=== PATIENT | female | born 1975 | race Caucasian/White ===

== ENCOUNTER → 2025-01-21 | Outpatient (CLI) | payer BC, SELFPAY ==
--- OUTSIDE RECORDS SUMMARY | 2025-01-21 07:35 | XMS RPT_ITS | CCD ---
Author Organization [facility] [employer] [facility] Care Team Providers Care Stone Layer Name Role Phone Geno Gamboa Attending Tray Valerio Referring Unavailable Tray Javier Primary Care Unavailable Pranav Keating Referring Pranav Mishra Attending [facility] Physician, No Primary Primary Care Unava ilable Problems Problem Classification Problem Date Documented Date Episodic/Chronic Abdominal hernia (2 sources) Diaphragmatic hernia without obstruction or gangrene; Translations: [Diaphragmatic hernia without obstruction or gangrene] Onset: 11-25-2018 Episodic Abdominal pain (2 sources) Unspecified abdominal pain; Translations: [Unspecified abdominal pain] Onset: 11-25-2018 Episodic Diverticulosis and diverticulitis (2 sources) Diverticulosis of large intestine without perforation or abscess without bleeding; Translations: [Dvrtclos of lg int w/o perforation or abscess w/o bleeding] Onset: 11-25-2018 Chronic Other diseases of kidney and ureters (2 sources) Hydronephrosis with renal and ureteral calculous obstruction; Translations: [Hydronephrosis with renal and ureteral calculous obstruction] Onset: 11-25-2018 Episodic Ovarian cyst (2 sources) Unspecified ovarian cyst, left side; Translations: [Unspecified ovarian cyst, left side] Onset: 11-25-2018 Results Test Name Value Interpretation Reference Range Facil ity CT Abdomen/Pelvis w/o Contra ston 11-25-2018 CT Abdomen/Pelvis w/o Contrast Patient Name: ANEESH SANCHEZ CT Exam Date/Time 11/25/2018 12:51:[address] Abdomen/Pelvis (No PO, No IV) Ordering Physician ELOISA GAMBOA, GENO Sherwood Accession Number [id number] CPT4 Codes 81847 (CT Abdomen/Pelvis (No PO, No IV)) Reason For Exam Left Flank Pain Report CT ABDOMEN AND PELVIS WITHOUT CONTRAST Indication: 43-year-old; left flank pain; nausea and dysuria Scan Parameters: Multiple axial 3mm images were obtained of the abdomen and pelvis without IV and without oral contrast. Coronal and sagittal reconstructions were reviewed as well. Comparison: None. FINDINGS: Evaluation of the abdomen and pelvis is limited due to lack of IV and oral contrast. Lung bases: Lung base atelectasis present. Osseous structures: The bone mineralization is normal. There are foci of increased attenuation within the L3 and L4 vertebral bodies which may represent benign bone islands. Liver: The hepatic contour is unremarkable. Biliary tree: No biliary dilatation. The gallbladder is present. Spleen: Normal. Adrenals: Normal. Pancreas: Normal. Kidneys: A punctate calculus is present at the left ureterovesical junction. The left ureter is distended along its course with mild left renal hydronephrosis. Left perinephric stranding and edema is present. There is mild stranding surrounding the course of the left ureter. The right kidney is unremarkable. The bladder is decompressed. Free fluid: None. Lymphadenopathy: None. Aorta: Normal caliber. Bowel: The appendix is present in the right lower quadrant and is normal. The bowel gas pattern is nonspecific and nonobstructive. A few diverticuli are present within the colon. A small hiatal hernia is present. Other: The uterus is present. The bilateral ovaries are visualized. A probable left ovarian 3.2 cm cyst is present in the left adnexa. A small fatty ventral umbilical hernia is present. IMPRESSION: 1. Mild left renal hydronephrosis with mild distention of the left ureter with superimposed inflammatory / infectious changes. A punctate calculus is present at the left ureterovesical junction. 2. Left probable. 3.2 cm cyst. Further characterization with ultrasound can be performed when feasible. 3. Colonic diverticulosis. 4. Small hiatal hernia. Report Dictated on Final Dictating Physician: MD GUEVARA JENNIFER R Signed Date and Time: 11/25/2018 1:13 pm Signed by: MD GUEVARA JENNIFER R Transcribed Date and Time: 11/25/2018 1:14 Normal [facility] Comp Metabolic Panelon 11-25 ALP enzyme act/vol 116 U/L Normal 38-126 [facility] Comment on above: Performed By: #### C MP3, HEMDF #### [facility] [address] [place] [address] ALT enzyme act/vol 48 U/L Normal 13-69 [facility] Comment on above: Performed By: #### C MP3, HEMDF #### [facility] [address] [place] [address] AST enzyme act/vol 26 U/L Normal 15-46 [facility] Comment on above: Performed By: #### C MP3, HEMDF #### [facility] [address] [place] [address] Calcium mass conc 10.0 mg/dL Normal 8.4-10.4 [facility] Comment on above: Performed By: #### C MP3, HEMDF #### [facility] [address] [place] [address] Glucose mass conc 127 mg/dL High 70-100 [facility] Comment on above: Performed By: #### C MP3, HEMDF #### [facility] [address] [place] [address] Protein mass conc 6.9 g/dL Normal 6.3-8.2 [facility] Comment on above: Performed By: #### C MP3, HEMDF #### [facility] [address] [place] [address] Urea nitrogen mass conc 17 mg/dL Normal 7-20 [facility] Comment on above: Performed By: #### C MP3, HEMDF #### [facility] [address] [place] [address] Anion gap molar conc 8 Normal [facility] Comment on above: Performed By: #### C MP3, HEMDF #### [facility] [address] [place] [address] Bilirubin mass conc 0.4 mg/dL Normal 0.2-1.3 [facility] Comment on above: Performed By: #### C MP3, HEMDF #### [facility] [address] [place] [address] CO2 molar conc 30 mmol/L Normal 22-30 [facility] Comment on above: Performed By: #### C MP3, HEMDF #### [facility] [address] [place] [address] Creatinine mass conc 0.91 mg/dL Normal 0.52-1.25 [facility] Comment on above: Performed By: #### C MP3, HEMDF #### [facility] [address] [place] [address] GFR/1.73 sq M predicted among blacks MDRD vol rate/area (S/P/Bld) mL/min/{1.73_m2} Normal >60 [facility] Comment on above: Performed By: #### C MP3, HEMDF #### [facility] [address] [place] [address] GFR/1.73 sq M predicted among non-blacks MDRD vol rate/area (S/P/Bld) mL/min/{1.73_m2} Normal >60 [facility] Comment on above: Result Comment: Sour ce- MDRD equation with creatinine calibration to IDMS(NKDEP) eGFR not recommended for drug dose adjustment Performed By: #### C MP3, HEMDF #### [facility] [address] [place] [address] Albumin mass conc 4.3 g/dL Normal 3.5-5.0 [facility] Comment on above: Performed By: #### C MP3, HEMDF #### [facility] [address] [place] [address] Chloride molar conc 102 mmol/L Normal 98-107 [facility] Comment on above: Performed By: #### C MP3, HEMDF #### [facility] [address] [place] [address] Potassium molar conc 4.2 mmol/L Normal 3.5-5.1 [facility] Comment on above: Performed By: #### C MP3, HEMDF #### [facility] [address] [place] [address] Sodium molar conc 140 mmol/L Normal 135-145 [facility] Comment on above: Performed By: #### C MP3, HEMDF #### [facility] [address] [place] [address] HCG,Urine Qualon 11-25-2018 HCG.beta subunit ( test) Ql (U) Negative Normal Negative [facility] Comment on above: Result Comment: Preg carol is the most common reason for HCG in urine, although choriocarcinoma, hydatidiform mole, and certain nontropho- blastic malignancies also result in detectable urinary HCG levels. Sensitivity = 20mIU/mL. Performed By: #### U AMAC, HCGUR, UAMIC #### [facility] [address] [place] [address] Hemogram w/ Autodiffon 11-25 Abs Baso Cnt 0.1 10*3/uL Normal 0.0-0.2 [facility] Comment on above: Performed By: #### C MP3, HEMDF #### [facility] [address] [place] [address] Abs Neutrophile Cnt 10.3 10*3/uL High 1.8-7.0 [facility] Comment on above: Performed By: #### C MP3, HEMDF #### [facility] [address] [place] [address] Basophils/100 WBC (Bld) 0.4 % Normal 0.0-2.0 [facility] Comment on above: Performed By: #### C MP3, HEMDF #### [facility] [address] [place] [address] Eosinophils #/vol (Bld) 0.1 10*3/uL Normal 0.0-0.5 [facility] Comment on above: Performed By: #### C MP3, HEMDF #### [facility] [address] [place] [address] Eosinophils/100 WBC (Bld) 0.7 % Low 1.0-6.0 [facility] Comment on above: Performed By: #### C MP3, HEMDF #### [facility] [address] [place] [address] Erythrocyte distribution width Ratio (RBC) 14.1 % Normal 11.5-14.5 [facility] Comment on above: Performed By: #### C MP3, HEMDF #### [facility] [address] [place] [address] Granulocytes/100 WBC (Bld) 85.7 % High 40.0-80.0 [facility] Comment on above: Performed By: #### C MP3, HEMDF #### [facility] [address] [place] [address] Hematocrit Volume Fraction (Bld) 39.3 % Normal 35.0-47.0 [facility] Comment on above: Performed By: #### C MP3, HEMDF #### [facility] [address] [place] [address] Hemoglobin mass conc (Bld) 13.1 g/dL Normal 11.7-16.0 [facility] Comment on above: Performed By: #### C MP3, HEMDF #### [facility] [address] [place] [address] Lymphocytes #/vol (Bld) 1.1 10*3/uL Normal 1.0-4.3 [facility] Comment on above: Performed By: #### C MP3, HEMDF #### [facility] [address] [place] [address] Lymphocytes/100 WBC (Bld) 8.9 % Low 20.0-40.0 [facility] Comment on above: Performed By: #### C MP3, HEMDF #### [facility] [address] [place] [address] MCH Entitic mass (RBC) 27.5 pg Normal 26.0-34.0 [facility] Comment on above: Performed By: #### C MP3, HEMDF #### [facility] [address] [place] [address] MCHC mass conc (RBC) 33.4 % Normal 32.0-36.0 [facility] Comment on above: Performed By: #### C MP3, HEMDF #### [facility] [address] [place] [address] MCV Entitic volume (RBC) 82.4 fL Normal 79.0-98.0 [facility] Comment on above: Performed By: #### C MP3, HEMDF #### [facility] [address] [place] [address] Monocytes #/vol (Bld) 0.5 10*3/uL Normal 0.0-0.8 [facility] [employer] Comment on above: Performed By: #### C MP3, HEMDF #### [facility] [address] [place] [address] Monocytes/100 WBC (Bld) 4.3 % Normal 2.0-10.0 [facility] [employer] Comment on above: Performed By: #### C MP3, HEMDF #### [facility] [address] [place] [address] Platelet mean volume Entitic volume (Bld) 8.5 fL Normal 7.4-10.4 [facility] [employer] Comment on above: Performed By: #### C MP3, HEMDF #### [facility] [address] [place] [address] Platelets #/vol (Bld) 281 10*3/uL Normal 140-440 [facility] [employer] Comment on above: Performed By: #### C MP3, HEMDF #### [facility] [address] [place] [address] RBC #/vol (Bld) 4.77 10*6/uL Normal 3.80-5.20 [facility] Comment on above: Performed By: #### C MP3, HEMDF #### [facility] [address] [place] [address] WBC #/vol (Bld) 12.1 10*3/uL High 3.6-10.7 [facility] Comment on above: Performed By: #### C MP3, HEMDF #### [facility] [address] [place] [address] Urinalysis,Macroon 9 Appearance Nom (U) CLEAR Normal Clear [facility] Comment on above: Performed By: #### U AMAC, HCGUR, UAMIC #### [facility] [address] [place] [address] Bilirubin,Ur Negative Normal Negative [facility] [employer] Comment on above: Performed By: #### U AMAC, HCGUR, UAMIC #### [facility] [address] [place] [address] Color Nom (U) YELLOW Normal Lt. Yellow [facility] Comment on above: Performed By: #### U AMAC, HCGUR, UAMIC #### [facility] [address] [place] [address] Glucose Ql (U) Negative Normal Negative [facility] Comment on above: Performed By: #### U AMAC, HCGUR, UAMIC #### [facility] [address] [place] [address] Ketone,Urine Negative Normal Negative [facility] Comment on above: Performed By: #### U AMAC, HCGUR, UAMIC #### [facility] [address] [place] [address] Nitrite Ql (U) Negative Normal Negative [facility] Comment on above: Performed By: #### U AMAC, HCGUR, UAMIC #### [facility] [address] [place] [address] Occult Blood,Ur 3 + {RBC}/uL Normal Negative [facility] Comment on above: Performed By: #### U AMAC, HCGUR, UAMIC #### [facility] [address] [place] [address] pH (U) 5.5 Normal 5.0-8.0 [facility] Comment on above: Performed By: #### U AMAC, HCGUR, UAMIC #### [facility] [address] [place] [address] Protein mass conc (U) Negative Normal Negative [facility] Comment on above: Performed By: #### U AMAC, HCGUR, UAMIC #### [facility] [address] [place] [address] Specific [place],Urine 1.022 Normal 1.005-1.030 [facility] Comment on above: Performed By: #### U AMAC, HCGUR, UAMIC #### [facility] [address] [place] [address] Urobilinogen Qn (U) 0.2 mg/dL Normal 0-1 [facility] Comment on above: Performed By: #### U AMAC, HCGUR, UAMIC #### [facility] [address] [place] [address] WBC #/vol (Bld) Negative Normal Negative [facility] Comment on above: Performed By: #### U AMAC, HCGUR, UAMIC #### [facility] [address] [place] [address] Urinalysis,Microscopicon Bacteria LM.HPF #/area (Urine sed) Negative Normal Negative [facility] Comment on above: Performed By: #### U AMAC, HCGUR, UAMIC #### [facility] [address] [place] [address] Cast, Hyaline 3 /[LPF] Normal 0-1 [facility] Comment on above: Performed By: #### U AMAC, HCGUR, UAMIC #### [facility] [address] [place] [address] Epithelial cells LM.HPF #/area (Urine sed) TRACE Normal 3-5 [facility] Comment on above: Performed By: #### U AMAC, HCGUR, UAMIC #### [facility] [address] [place] [address] RBC,Urine 86 /[HPF] Normal 0-2 [facility] Comment on above: Performed By: #### U AMAC, HCGUR, UAMIC #### [facility] [address] [place] [address] WBC,Urine 3 /[HPF] Normal 0-5 [facility] Comment on above: Performed By: #### U AMAC, HCGUR, UAMIC #### [facility] [address] [place] [address] Encounters Encounter Date Encounter Type Care Provider Facility Start: 01-21-2025 ambulatory [facility] Fa cility:[facility] Start: 01-15-2025 Encounter for other preprocedural examination [facility] Start: 11-25-2018 Emergency department patient visit Geno Gamboa [facility] Payers Date Payer Category Payer Self-pay 2024 Unknown [id number] 1975 Unknown [id number] Private Health Insurance Unknown [id number] Summary Purpose Family History No Family History Records FoundNo Family History Records Found Advance Directives No Advanced Directives Records FoundNo Advanced Directives Records Found Additional Source Comments INFORMATION SOURCE (unrecogn ized section and content) DATE CREATED AUTHOR 12/03/2018 [facility] [place] DATE CREATED AUTHOR AUTHOR'S ORGANIZ ATION 01/18/2025 [facility] FOR RECORDS PERTAINING TO PATIENTS WHO ARE OR HAVE BEEN ENROLLED IN A CHEMICAL DEPENDENCY/SUBSTANCEABUSE PROGRAM, SOME INFORMATION MAY BE OMITTED. This clinical summary was aggregated from multiple sources. Caution should be exercised in using it in the provision of clinical care. This summary normalizes information from multiple sources, and as a consequence, information in this document may materially change the coding, format and clinical context of patient data. In addition, data may be omitted in some cases. CLINICAL DECISIONS SHOULD BE BASED ON THE PRIMARY CLINICAL RECORDS. [email or web address] [facility]. provides no warranty or guarantee of the accuracy or completeness of information in this document.
[2025-01-21 07:57] LABS: Hematocrit 38.7 % (37-47); Hemoglobin 12.6 g/dL (12.0-15.0); Mean Corp Hgb Conc 32.6 g/dL (32-36); Mean Corpuscular Hgb 26.7 pg (27.0-32.0); Mean Platelet Vol. 10.9 fl (6.2-12.0); Platelet Count 238 K/mm3 (150-450); RBC Distribution Width CV 14.4 % (11.6-14.6); RBC Distribution Width SD 43.3 fl (35.1-43.9); Red Blood Count 4.72 M/mm3 (4.2-5.4)
[2025-01-21 09:06] LABS: Anion Gap 9 (5-15); BUN 15 mg/dL (4-19); Carbon Dioxide 22.5 mmol/L (21.0-32.0); Chloride 108 mmol/L (98-108); Creatinine, Serum 0.73 mg/dL (0.70-1.20); EST Glomerular Filtration Rate 98 (>60); Glucose 101 mg/dL (70-99); Potassium 3.8 mmol/L (3.3-5.1); Sodium Level 140 mmol/L (133-145)
== END | disposition home or self-care (01) ==
PROVIDERS: Referring Provider Otolaryngology; Visit Provider Otolaryngology
DX: Z01.812 Encounter for preprocedural laboratory examination (principal); Z01.810 Encounter for preprocedural cardiovascular examination
CPT/HCPCS: 36415; 80048; 85027; 93005

== ENCOUNTER → 2025-02-05 | Outpatient (CLI) | payer BC, SELFPAY ==
--- NOTE | 2025-02-04 12:30 | MASS_PTH ---
PATIENT: ANEESH SANCHEZ LOC: [facility] U#:[id number] AGE/SX: 50/F ROOM: RE02/05/[address]: Dr. Pranav Keating MD : [id number] BED: DIS: 02/05/2025 SPEC #: [id number] RECD: 02/05/25 14:54 STATUS: LEEANN REHoma #: [id number] KEITH: 02/04/25 12:[address]: Pranav Keating DEPT: SURGICAL PATHOLOGY RECD BY: Pako Parker ENTERED: 02/06/25 08:10 SP TYPE: Mass OTHR DR: No Primary Care Phys Tissues: A - Neck, NOS Procedures: Surgery Specimen Level III HEADER OPERATION: Excision neck mass PRE-OP DIAGNOSIS: Localized swelling, mass and lump, neck TISSUE SUBMITTED: A- Neck mass MICROSCOPIC DIAGNOSIS A. Neck, mass, excision: * Epidermal inclusion cyst. MICROSCOPIC DESCRIPTION Slides are reviewed. GROSS DESCRIPTION A.? Received in formalin labeled with the patient's name and date of . Designated as neck mass is a 2.4 x 2.3 x 1.7 cm mckeon-white, intact cystic structure.? Sectioning reveals mckeon-white grumous contents and a fibrotic cyst wall.? Ssis Developer sections are submitted in 1 cassette. CO 02/06/2025 CPT:40720
--- OUTSIDE RECORDS SUMMARY | 2025-02-05 22:26 | XMS RPT_ITS | CCD ---
Author Organization [facility] ion [facility] Care Team Providers Care Ship Pilot Name Role Phone Geno Gamboa Attending Unavailable Tray Javier Referring Unavailable Tray Javier Primary Care Unavailable Rishabh MELÉNDEZ, Dr. Rock Attending Provider Dr. Pranav Keating MD Referring Provider Care Physician, No Primary Primary Care Provider Unavailable Liban Arevalo Attending Unavailable Care Physician, No Primary Primary Care Unava ilPranav Galvez Referring Unavailabl e Care Physician, No Primary Primary Care Unava ilPranav Galvez Referring Unavailabl e Pranav Keating Attending Unavailabl e Problems Problem Classification Problem Date Documented Date [...] Results Test Name Value Interpretation Reference Range Facility Anion gap in Serum or Plasma Ordered By: Pranav Keating on 01-21-2025 Anion gap [Moles/Vol] 9 mmol/L 5-15 [facility] BUN/creatinine ratioOrdered By: Prnaav Keating on 01-21-2025 Urea nitrogen/Creatinine [Mass ratio] 21.0 mg/mg High 10-20 [facility] Basic Metabolic Profile (BMP )on 01-21-2025 BUN/CRE 21.0 RATIO High -20 [facility] Comment on above: Performed By: #### L 100.0500, L500.2500 #### [facility] [address] [place], [address] Calcium [Mass/Vol] 10.0 mg/dL Normal 7.6-11.0 [facility] Comment on above: Performed By: #### L 100.0500, L500.2500 #### [facility] [address] [place], [address] Chloride [Moles/Vol] 108 mmol/L Normal 98-108 [facility] Comment on above: Performed By: #### L 100.0500, L500.2500 #### [facility] [address] [place], [address] CO2 [Moles/Vol] 22.5 mmol/L Normal 21.0-32.0 [facility] Comment on above: Performed By: #### L 100.0500, L500.2500 #### [facility] [address] [place], [address] Creatinine [Mass/Vol] 0.73 mg/dL Normal 0.70-1.20 [facility] Comment on above: Performed By: #### L 100.0500, L500.2500 #### [facility] [address] [place], [address] GAP 9 Normal 5-15 [facility] Comment on above: Performed By: #### L 100.0500, L500.2500 #### [facility] [address] [place], [address] GFR/1.73 sq M.predicted among non-blacks MDRD (S/P/Bld) [Vol rate/Area] 98 mL/min/{1.73_m2} Normal >60 [facility] Comment on above: Result Comment: mL/m in/1.73m2 CKD-EPI Creatinine Equation (2020) Performed By: #### L 100.0500, L500.2500 #### [facility] [address] [place], [address] Glucose [Mass/Vol] 101 mg/dL High 70-99 [facility] Comment on above: Performed By: #### L 100.0500, L500.2500 #### [facility] [address] [place], [address] Potassium [Moles/Vol] 3.8 mmol/L Normal 3.3-5.1 [facility] Comment on above: Performed By: #### L 100.0500, L500.2500 #### [facility] [address] [place], [address] Sodium [Moles/Vol] 140 mmol/L Normal 133-145 [facility] Comment on above: Performed By: #### L 100.0500, L500.2500 #### [facility] [address] [place], [address] Urea nitrogen [Mass/Vol] 15 mg/dL Normal 4-19 [facility] Comment on above: Performed By: #### L 100.0500, L500.2500 #### [facility] [address] [place], [address] CBC-Complete Blood Cnt No Di ffon 01-21-2025 Erythrocyte distribution width (RBC) [Ratio] 14.4 % Normal 11.6-14.6 [facility] Comment on above: Performed By: #### L 100.0500, L500.2500 #### [facility] [address] [place], [address] Hematocrit (Bld) [Volume fraction] 38.7 % Normal 37-47 [facility] Comment on above: Performed By: #### L 100.0500, L500.2500 #### [facility] [address] [place], [id number] Hemoglobin (Bld) [Mass/Vol] 12.6 g/dL Normal 12.0-15.0 [facility] Comment on above: Performed By: #### L 100.0500, L500.2500 #### [facility] [address] [place], [id number] MCH (RBC) [Entitic mass] 26.7 pg Low 27.0-32.0 [facility] Comment on above: Performed By: #### L 100.0500, L500.2500 #### [facility] [address] [place], [address] MCHC (RBC) [Mass/Vol] 32.6 g/dL Normal 32-36 [facility] Comment on above: Performed By: #### L 100.0500, L500.2500 #### [facility] [address] [place], [id number] MCV (RBC) [Entitic vol] 82.0 fL Normal 81-99 [facility] Comment on above: Performed By: #### L 100.0500, L500.2500 #### [facility] [address] [place], [id number] Platelet mean volume (Bld) [Entitic vol] 10.9 fL Normal 6.2-12.0 [facility] Comment on above: Performed By: #### L 100.0500, L500.2500 #### [facility] [address] [place], [id number] Platelets (Bld) [#/Vol] 238 10*3/uL Normal 150-450 [facility] Comment on above: Performed By: #### L 100.0500, L500.2500 #### [facility] [address] [place], [address] RBC (Bld) [#/Vol] 4.72 10*6/uL Normal 4.2-5.4 [facility] Comment on above: Performed By: #### L 100.0500, L500.2500 #### [facility] [address] [place], [address] RDW SD 43.3 fl Normal 35.1-43.9 [facility] Comment on above: Performed By: #### L 100.0500, L500.2500 #### [facility] [address] [place], [address] WBC (Bld) [#/Vol] 6.0 10*3/uL Normal 4.4-11.0 [facility] Comment on above: Performed By: #### L 100.0500, L500.2500 #### [facility] [address] [place], [address] Carbon dioxide, total [Moles /volume] in Central venous bloodOrdered By: Pranav Keating on 01-21-2025 CO2 [Moles/Vol] 22.5 mmol/L 21.0-32.0 [facility] Chloride assayOrdered By: Gisel Keating on 01-21-2025 Chloride [Moles/Vol] 108 mmol/L 98-108 [facility] Erythrocyte distribution wid th ratioOrdered By: Pranav Keating on 01-21-2025 Erythrocyte distribution width (RBC) [Ratio] 14.4 % 11.6-14.6 [facility] Erythrocyte distribution wid th standard deviationOrdered By: Pranav Keating on 01-21-2025 Erythrocyte distribution width (RBC) [Ratio] 43.3 fl 35.1-43.9 [facility] Glomerular filtration rate ( GFR) estimation/1.73 sq m using serum, plasma, or whole bOrdered By: Pranav Keating on 01-21-2025 GFR/1.73 sq M.predicted among non-blacks MDRD (S/P/Bld) [Vol rate/Area] 98 mL/min/{1.73_m2} >60 [facility] Comment on above: mL/min/1.73m2 CKD-EP I Creatinine Equation (2020) Hematocrit Auto (Bld) [Volum e fraction]Ordered By: Pranav Keating on 01-21-2025 Hematocrit (Bld) [Volume fraction] 38.7 % 37-47 [facility] Hemoglobin measurementOrdere d By: Pranav Keating on 01-21-2025 Hemoglobin (Bld) [Mass/Vol] 12.6 g/dL 12.0-15.0 [facility] MCV (mean corpuscular volume ) determinationOrdered By: Pranav Keating on 01-21-2025 MCV (RBC) [Entitic vol] 82.0 fL 81-99 [facility] Mean corpuscular hemoglobin (MCH) determinationOrdered By: Pranav Keating on 01-21-2025 MCH (RBC) [Entitic mass] 26.7 pg Low 27.0-32.0 [facility] Mean corpuscular hemoglobin concentration (MCHC) determinationOrdered By: Pranav Keating on 01-21-2025 MCHC (RBC) [Mass/Vol] 32.6 g/dL 32-36 [facility] Mean platelet volume determi nationOrdered By: Pranav Keating on 01-21-2025 Platelet mean volume (Bld) [Entitic vol] 10.9 fL 6.2-12.0 [facility] Platelet countOrdered By: Gisel Keating on 01-21-2025 Platelets (Bld) [#/Vol] 238 10*3/uL 150-450 [facility] Potassium measurement (mass/ volume)Ordered By: Pranav Keating on 01-21-2025 Potassium (Unsp spec) [Mass/Vol] 3.8 mmol/L 3.3-5.1 [facility] RBC Auto (Bld) [#/Vol]Ordere d By: Pranav Keating on 01-21-2025 RBC (Bld) [#/Vol] 4.72 10*6/uL 4.2-5.4 [facility] Serum creatinine measurement (mass/volume)Ordered By: Pranav Keating on 01-21-2025 Creatinine [Mass/Vol] 0.73 mg/dL 0.70-1.20 [facility] Serum glucose measurement (m ass/volume)Ordered By: Pranav Keating on 01-21-2025 Glucose [Mass/Vol] 101 mg/dL High 70-99 [facility] Serum or plasma calcium agusto urement (mass/volume)Ordered By: Pranav Keating on 01-21-2025 Calcium [Mass/Vol] 10.0 mg/dL 7.6-11.0 [facility] Serum or plasma urea nitroge n measurement (mass/volume)Ordered By: Pranav Keating on 01-21-2025 Urea nitrogen [Mass/Vol] 15 mg/dL 4-19 [facility] Sodium levelOrdered By: Isra Keating on 01-21-2025 Sodium [Moles/Vol] 140 mmol/L 133-145 [facility] White blood cell (WBC) count Ordered By: Pranav Keating on 01-21-2025 WBC (Bld) [#/Vol] 6.0 10*3/uL 4.4-11.[address] [facility] CT Abdomen/Pelvis w/o Contra ston 11-25-2018 CT Abdomen/Pelvis w/o Contrast Patient Name: ANEESH SANCHEZ CT Exam Date/Time 11/25/2018 12:51:[address] Abdomen/Pelvis (No PO, No IV) Ordering Physician ELOISA GAMBOA AMY L Accession Number [id number] CPT4 Codes 58702 (CT Abdomen/Pelvis (No PO, No IV)) Reason [...] Transcribed Date and Time: 11/25/2018 1:14 Normal [facility] Comp Metabolic Panelon 11-25 ALP enzyme act/vol 116 U/L Normal 38-126 [facility] Comment on above: Performed By: #### C MP3, HEMDF #### [facility] [address] [place] [address] ALT enzyme act/vol 48 U/L Normal 13-69 [facility] Comment on above: Performed By: #### C MP3, HEMDF #### [facility] [address] [place] [address] AST enzyme act/vol 26 U/L Normal 15-46 [facility] Comment on above: Performed By: #### C MP3, HEMDF #### [facility] [address] [place] [address] Calcium mass conc 10.0 mg/dL Normal 8.4-10.4 [facility] Comment on above: Performed By: #### C MP3, HEMDF #### [facility] [address] [place] [address] Glucose mass conc 127 mg/dL High 70-100 [facility] Comment on above: Performed By: #### C MP3, HEMDF #### [facility] [address] [place] [address] Protein mass conc 6.9 g/dL Normal 6.3-8.2 [facility] Comment on above: Performed By: #### C MP3, HEMDF #### [facility] [address] [place] [address] Urea nitrogen mass conc 17 mg/dL Normal 7-20 [facility] Comment on above: Performed By: #### C MP3, HEMDF #### [facility] [address] [place] [address] Anion gap molar conc 8 Normal [facility] Comment on above: Performed By: #### C MP3, HEMDF #### [facility] [address] [place] [address] Bilirubin mass conc 0.4 mg/dL Normal 0.2-1.3 [facility] Comment on above: Performed By: #### C MP3, HEMDF #### [facility] [address] [place] [address] CO2 molar conc 30 mmol/L Normal 22-30 [facility] Comment on above: Performed By: #### C MP3, HEMDF #### [facility] [address] [place] [address] Creatinine mass conc 0.91 mg/dL Normal 0.52-1.25 [facility] Comment on above: Performed By: #### C MP3, HEMDF #### [facility] [address] [place] [address] GFR/1.73 sq M predicted among blacks MDRD vol rate/area (S/P/Bld) mL/min/{1.73_m2} Normal >[facility] Comment on above: Performed By: #### C MP3, HEMDF #### [facility] [address] [place] [address] GFR/1.73 sq M predicted among non-blacks MDRD vol rate/area (S/P/Bld) mL/min/{1.73_m2} Normal >60 [facility] Comment on above: Result Comment: Sour ce- MDRD equation with creatinine calibration to IDMS(NKDEP) eGFR not recommended for drug dose adjustment Performed By: #### C MP3, HEMDF #### [facility] [address] [place] [address] Albumin mass conc 4.3 g/dL Normal 3.5-5.0 [facility] Comment on above: Performed By: #### C MP3, HEMDF #### [facility] [address] [place] [address] Chloride molar conc 102 mmol/L Normal 98-107 [facility] Comment on above: Performed By: #### C MP3, HEMDF #### [facility] [address] [place] [address] Potassium molar conc 4.2 mmol/L Normal 3.5-5.1 [facility] Comment on above: Performed By: #### C MP3, HEMDF #### [facility] [address] [place] [address] Sodium molar conc 140 mmol/L Normal 135-145 [facility] Comment on above: Performed By: #### C MP3, HEMDF #### [facility] [address] [place] [address] HCG,Urine Qualon 11-25-2018 HCG.beta subunit ( test) Ql (U) Negative Normal Negative [facility] Comment on above: Result Comment: Preg carol is the most common reason for HCG in urine, although choriocarcinoma, hydatidiform mole, and certain nontropho- blastic malignancies also result in detectable urinary HCG levels. Sensitivity = 20mIU/mL. Performed By: #### U AMAC, HCGUR, UAMIC #### [facility] [address] [place] [address] Hemogram w/ Autodiffon 11-25 Abs Baso Cnt 0.1 10*3/uL Normal 0.0-0.2 [facility] Comment on above: Performed By: #### C MP3, HEMDF #### [facility] [address] [place] [address] Abs Neutrophile Cnt 10.3 10*3/uL High 1.8-7.0 [facility] Comment on above: Performed By: #### C MP3, HEMDF #### [facility] [address] [place] [address] Basophils/100 WBC (Bld) 0.4 % Normal 0.0-2.0 [facility] Comment on above: Performed By: #### C MP3, HEMDF #### [facility] [address] [place] [address] Eosinophils #/vol (Bld) 0.1 10*3/uL Normal 0.0-0.5 [facility] Comment on above: Performed By: #### C MP3, HEMDF #### [place] [address] [place] [address] Eosinophils/100 WBC (Bld) 0.7 % Low 1.0-6.0 [facility] Comment on above: Performed By: #### C MP3, HEMDF #### [facility] [address] [place] [address] Erythrocyte distribution width Ratio (RBC) 14.1 % Normal 11.5-14.5 [facility] Comment on above: Performed By: #### C MP3, HEMDF #### [place] [address] [place] [address] Granulocytes/100 WBC (Bld) 85.7 % High 40.0-80.0 [facility] Comment on above: Performed By: #### C MP3, HEMDF #### [place] [address] [place] [address] Hematocrit Volume Fraction (Bld) 39.3 % Normal 35.0-47.0 [facility] Comment on above: Performed By: #### C MP3, HEMDF #### [facility] [address] [place] [address] Hemoglobin mass conc (Bld) 13.1 g/dL Normal 11.7-16.0 [facility] Comment on above: Performed By: #### C MP3, HEMDF #### [facility] [address] [place] [address] Lymphocytes #/vol (Bld) 1.1 10*3/uL Normal 1.0-4.3 [facility] Comment on above: Performed By: #### C MP3, HEMDF #### [facility] [address] [place] [address] Lymphocytes/100 WBC (Bld) 8.9 % Low 20.0-40.0 [facility] Comment on above: Performed By: #### C MP3, HEMDF #### [facility] [address] [place] [address] MCH Entitic mass (RBC) 27.5 pg Normal 26.0-34.0 [facility] Comment on above: Performed By: #### C MP3, HEMDF #### [facility] [address] [place] [address] MCHC mass conc (RBC) 33.4 % Normal 32.0-36.0 [facility] Comment on above: Performed By: #### C MP3, HEMDF #### [facility] [address] [place] [address] MCV Entitic volume (RBC) 82.4 fL Normal 79.0-98.0 [facility] Comment on above: Performed By: #### C MP3, HEMDF #### [facility] [address] [place] [address] Monocytes #/vol (Bld) 0.5 10*3/uL Normal 0.0-0.8 [facility] Comment on above: Performed By: #### C MP3, HEMDF #### [facility] [address] [place] [address] Monocytes/100 WBC (Bld) 4.3 % Normal 2.0-10.0 [facility] Comment on above: Performed By: #### C MP3, HEMDF #### [facility] [address] [place] [address] Platelet mean volume Entitic volume (Bld) 8.5 fL Normal 7.4-10.4 [facility] Comment on above: Performed By: #### C MP3, HEMDF #### [facility] [address] [place] [address] Platelets #/vol (Bld) 281 10*3/uL Normal 140-440 [facility] Comment on above: Performed By: #### C MP3, HEMDF #### [place] [address] [place] [address] RBC #/vol (Bld) 4.77 10*6/uL Normal 3.80-5.20 [facility] Comment on above: Performed By: #### C MP3, HEMDF #### [facility] [address] [place] [address] WBC #/vol (Bld) 12.1 10*3/uL High 3.6-10.7 [facility] Comment on above: Performed By: #### C MP3, HEMDF #### [facility] [address] [place] [address] Urinalysis,Macroon 9 Appearance Nom (U) CLEAR Normal Clear [facility] Comment on above: Performed By: #### U AMAC, HCGUR, UAMIC #### [facility] [address] [place] [address] Bilirubin,Ur Negative Normal Negative [facility] Comment on above: Performed By: #### U AMAC, HCGUR, UAMIC #### [facility] [address] [place] [address] Color Nom (U) YELLOW Normal Lt. Yellow [facility] Comment on above: Performed By: #### U AMAC, HCGUR, UAMIC #### [place] [address] [place] [address] Glucose Ql (U) Negative Normal Negative [facility] Comment on above: Performed By: #### U AMAC, HCGUR, UAMIC #### [facility] [address] [place] [address] Ketone,Urine Negative Normal Negative [facility] Comment on above: Performed By: #### U AMAC, HCGUR, UAMIC #### [facility] [address] [place] [address] Nitrite Ql (U) Negative Normal Negative [facility] Comment on above: Performed By: #### U AMAC, HCGUR, UAMIC #### [facility] [address] [place] [address] Occult Blood,Ur 3 + {RBC}/uL Normal Negative [facility] Comment on above: Performed By: #### U AMAC, HCGUR, UAMIC #### [facility] [address] [place] [address] pH (U) 5.5 Normal 5.0-8.0 [facility] Comment on above: Performed By: #### U AMAC, HCGUR, UAMIC #### [facility] [address] [place] [address] Protein mass conc (U) Negative Normal Negative [facility] Comment on above: Performed By: #### U AMAC, HCGUR, UAMIC #### [facility] [address] [place] [address] Specific [place],Urine 1.022 Normal 1.005-1.030 [facility] Comment on above: Performed By: #### U AMAC, HCGUR, UAMIC #### [facility] [address] [place] [address] Urobilinogen Qn (U) 0.2 mg/dL Normal 0-1 [facility] Comment on above: Performed By: #### U AMAC, HCGUR, UAMIC #### [facility] [address] [place] [address] WBC #/vol (Bld) Negative Normal Negative [facility] Comment on above: Performed By: #### U AMAC, HCGUR, UAMIC #### [facility] [address] [place] [address] Urinalysis,Microscopicon Bacteria LM.HPF #/area (Urine sed) Negative Normal Negative [facility] Comment on above: Performed By: #### U AMAC, HCGUR, UAMIC #### [facility] [address] [place] [address] Cast, Hyaline 3 /[LPF] Normal 0-1 [facility] Comment on above: Performed By: #### U AMAC, HCGUR, UAMIC #### [facility] [address] [place] [address] Epithelial cells LM.HPF #/area (Urine sed) TRACE Normal 3-5 [facility] Comment on above: Performed By: #### U AMAC, HCGUR, UAMIC #### [facility] [address] [place] [address] RBC,Urine 86 /[HPF] Normal 0-2 [facility] Comment on above: Performed By: #### U AMAC, HCGUR, UAMIC #### [facility] [address] [place] [address] WBC,Urine 3 /[HPF] Normal 0-5 [facility] Comment on above: Performed By: #### U AMAC, HCGUR, UAMIC #### [facility] [address] [place] [address] Encounters Encounter Date Encounter Type Care Provider Facility Start: 01-27-2025 Encounter for preprocedural laboratory examination Pranav Keating [facility] Start: 01-21-2025 End: 01-21-[address] Pranav Keating MD Work Phone: [facility] Work Phone: Start: 01-21-2025 End: 01-21-[address] Pranav Keating MD -Pulmonary Services/Neurology Work Phone: Start: 01-21-2025 End: 01-21-2025 ambulatory No Primary Care Physician Facility:[facility] Start: 11-25-2018 Emergency department patient visit Geno Gamboa [facility] Payers Date Payer Category Payer Self-pay 2025 Unknown [id number] 2024 Unknown [id number] 1975 Unknown [id number] [id number] Private Health Insurance Unknown [id number] [id number] [id number] Unknown [id number] [id number] [id number] Social History Date Type Detail Facility Tobacco smoking stat [facility] Unknown if ever smoked [facility] Work Phone: Start: 1975 Sex Assigned At Female [facility] Evaluation note Note Date & Type Note Facility Evaluation note No assessment information availa ble [facility] Work Phone: Reason for referral (narrative) Note Date & Type Note Facility Reason for referral (narrative) No reason for referral information available [facility] Work Phone: Summary Purpose Family History No Family History Records FoundNo Family History Records Found Advance Directives No Advanced Directives Records FoundNo Advanced Directives Records Found Chief Complaint and Reason for Visit Chief Complaint Admit Date PRE OP January 21, 2025 7:19a m Additional Source Comments INFORMATION SOURCE (unrecogn ized section and content) DATE CREATED AUTHOR 12/03/2018 [facility] DATE CREATED AUTHOR AUTHOR'S ORGANIZ ATION 01/28/2025 [facility] Care Teams (unrecognized sec tion and content) Team Status: Active Member Role Status Dates No Primary Care Physician Primary Care Provider Active Team Status: Inactive Member Role Status Dates Dr. Pranav Keating MD Attending Provider Activ e Start: January 21, 2025 End: January 21, 2025 Dr. Pranav Keating MD Referring Provider Activ e Start: January 21, 2025 End: January 21, 2025 No Primary Care Physician Primary Care Provider Active Start: January 21, 2025 End: January 21, 2025 Goals (unrecognized section and content) Goals may be documented in a n alternate section FOR RECORDS PERTAINING TO PATIENTS WHO ARE [...] BE BASED ON THE PRIMARY CLINICAL RECORDS. [facility] [employer] [facility]. provides no warranty or guarantee of the accuracy or completeness of information in this document.
== END | disposition home or self-care (01) ==
LOC: LABSPEC 15:00
PROVIDERS: Referring Provider Otolaryngology; Visit Provider Otolaryngology
DX: R22.1 Localized swelling, mass and lump, neck (principal)
CPT/HCPCS: 88304